=== PATIENT | male | born 1965 | race Caucasian/White ===

== ENCOUNTER 2021-02-20 09:38 | Inpatient (IN) ==
[2021-02-20] MEDS ORDERED: Ondansetron 4 MG/2 ML VIAL IVP ONE ×2 (10:03→14:10)
[2021-02-20 10:22] LABS: Basophils # 0.1 K/mcL (0.0-0.2); Basophils % 0.6 %; Eosinophils # 0.2 K/mcL (0.0-0.6); Eosinophils % 1.5 %; Hematocrit 46.9 % (37.5-50.1); Hemoglobin 15.6 g/dL (12.9-16.9); Immature Granulocytes % 0.4 % (0-4); Lymphocytes # 1.5 K/mcL (0.6-4.6); Lymphocytes % 13.9 %; Mean Corpuscular HGB Conc 33.3 g/dL (31.6-35.5); Mean Corpuscular Hemoglobin 31.8 pg (28.0-33.3); Mean Corpuscular Volume 95.5 fL (83.0-100.0); Monocytes # 0.4 K/mcL (0.0-1.3); Monocytes % 3.8 %; Neutrophils # 8.6 K/mcL (1.6-8.9); Platelet Count 284 K/mcL (140-400); Red Blood Count 4.91 M/mcL (4.19-5.50); Red Cell Distribution Width 12.5 % (11.5-14.5); Segmented Neutrophils % 79.8 %; White Blood Count 10.8 K/mcL (4.3-11.1)
[2021-02-20 10:30] LABS: BUN/Creatinine Ratio 19 (6-26); Blood Urea Nitrogen 22 mg/dL (6-20); Calcium 9.2 mg/dL (8.6-10.3); Carbon Dioxide 26 mEq/L (23-29); Chloride 104 mEq/L (98-107); Glucose 156 mg/dL (70-105); Osmolality,Calculated 289 (280-300); Potassium 4.7 mEq/L (3.5-5.1); Sodium 136 mEq/L (136-145); eGFR For African Americans > 60 (> 60); eGFR For Non-African Americans > 60 (> 60)
[2021-02-20] MEDS ORDERED: diazePAM 10 MG/2 ML SYRINGE IVP ONE (11:38)
[2021-02-20] MEDS ORDERED: Isovue-370 500 ML BOTTLE IVP ONE (11:57)
[2021-02-20] MEDS ORDERED: 0.9 % Sodium Chloride 1,000 ML IVC ONE (14:10)
[2021-02-20] MEDS ORDERED: Naloxone 0.4 MG/ML INJ IVP PRN (17:05)
[2021-02-20] MEDS ORDERED: 0.9 % Sodium Chloride 1,000 ML IVC SCH (17:15)
[2021-02-20 21:47] LABS: Amphetamine Screen,Urine Negative ng/mL (Cutoff=1000); Barbiturate Screen,Urine Negative ng/mL (Cutoff=200); Benzodiazepines Screen,Urine Positive ng/mL (Cutoff=200); Cannabinoid Screen,Urine Negative ng/mL (Cutoff = 50); Cocaine Screen,Urine Negative ng/mL (Cutoff= 300); Opiate Screen,Urine Negative ng/mL (Cutoff=300); Phencyclidine Screen,Urine Negative ng/mL (Cutoff=25)
[2021-02-21 01:31] LABS: BUN/Creatinine Ratio 18 (6-26); Blood Urea Nitrogen 19 mg/dL (6-20); Calcium 8.5 mg/dL (8.6-10.3); Carbon Dioxide 24 mEq/L (23-29); Chloride 106 mEq/L (98-107); Glucose 109 mg/dL (70-105); Osmolality,Calculated 289 (280-300); Potassium 4.3 mEq/L (3.5-5.1); Sodium 138 mEq/L (136-145); eGFR For African Americans > 60 (> 60); eGFR For Non-African Americans > 60 (> 60)
[2021-02-21] MEDS ORDERED: Isovue-370 500 ML BOTTLE IVP ONE (17:15)
[2021-02-21] MEDS ORDERED: Perflutren Lipid Microsphere 1.3 ML in 0.9 % Sodium Chloride 8.7 ML IVP PRN (17:15)
[2021-02-21] MEDS: Aspirin 81 MG TAB.CHEW PO SCH (18:18)
[2021-02-22 01:30] LABS: INR 1.1; Prothrombin Time 12.6 Seconds (9.4-12.1)
[2021-02-22 01:40] LABS: Chol/HDL Ratio 3.3 (0-4.9)
[2021-02-22] MEDS: Ondansetron 4 MG/2 ML VIAL IVP PRN ×2 (03:36→19:41)
[2021-02-22] MEDS: Acetaminophen 325 MG TABLET PO PRN ×2 (03:36→14:19)
[2021-02-22] MEDS: *HR* Enoxaparin 40 MG/0.4 ML SYRINGE SQ SCH (05:29)
[2021-02-22] MEDS: Aspirin 81 MG TAB.CHEW PO SCH (08:31)
[2021-02-22] MEDS: amLODIPine 5 MG TABLET PO SCH (17:00)
[2021-02-23] MEDS: *HR* Enoxaparin 40 MG/0.4 ML SYRINGE SQ SCH (05:26)
[2021-02-23] MEDS: Acetaminophen 325 MG TABLET PO PRN (05:26)
[2021-02-23 06:41] LABS: Estimated Average Glucose 117 mg/dl; Hemoglobin A1C 5.7 %
[2021-02-23 06:45] VITALS: TEMP 97.7
[2021-02-23] MEDS: amLODIPine 5 MG TABLET PO SCH (08:35)
[2021-02-23] MEDS: Aspirin 81 MG TAB.CHEW PO SCH (08:35)
[2021-02-23 11:06] VITALS: BP 146/74; PULSE 60; O2SAT 96
[2021-02-25 03:55] LABS: APTT (LE Anticoag) 46 sec (32-48); Diluted Russell Viper Venom 34 sec (33-44); PT (LE-Anticoag) 11.9 sec (12.0-15.5)
== END 2021-02-23 12:47 | disposition home or self-care (01) | DRG 65 ==
LOC: EMEROOARM 09:38 → 3BNU 09:38 → SUATTDRO 17:17 → 3BNU 18:30
PROVIDERS: ADMIT Student in an Organized Health Care Education/Training Program; ATTEND Registered Nurse